=== PATIENT | female | born 1990 | race Caucasian/White ===

== ENCOUNTER 2020-04-16 06:19 | Day surgery (SDC) | payer OTHER ==
[~2020-04-16] VITALS: Ht 154.9 cm; Wt 56.3 kg
[2020-04-16 07:13] VITALS: BP 106/74
[2020-04-16] MEDS ORDERED: SODIUM CHLORIDE 0.9% 1,000 ML IV SCH (07:30)
[2020-04-16] MEDS ORDERED: CEFAZOLIN PMX 1GM/50ML 50 ML IV ONE (07:30)
[2020-04-16] MEDS ORDERED: LIDOCAINE 1%, 20ML ONE (07:45)
[2020-04-16] MEDS ORDERED: LIDOCAINE 1%, 10ML ONE (07:45)
[2020-04-16] MEDS ORDERED: FENTANYL PF 100 MCG/2ML ONE ×2 (08:09)
[2020-04-16] MEDS ORDERED: FLUMAZENIL 0.1 MG/1 ML, 5ML ONE (08:10)
[2020-04-16] MEDS ORDERED: MIDAZOLAM 1 MG/ML, 5ML ONE (08:10)
[2020-04-16] MEDS ORDERED: NALOXONE 1 MG/ML, 2ML ONE (08:10)
== END 2020-04-16 11:05 | disposition home or self-care (01) ==
LOC: OUT 06:19
PROVIDERS: ATTEND Specialist
DX: O9A.113 Malignant neoplasm complicating pregnancy, third trimester (principal); C50.412 Malignant neoplasm of upper-outer quadrant of left female breast; O99.013 Anemia complicating pregnancy, third trimester; D64.9 Anemia, unspecified; O99.333 Smoking (tobacco) complicating pregnancy, third trimester; F17.210 Nicotine dependence, cigarettes, uncomplicated; Z17.0 Estrogen receptor positive status [ER+]; Z3A.38 38 weeks gestation of pregnancy
CPT/HCPCS: 36561; 76937; 77001; 99156; 99157; C1788; C1894; J0690; J1642; J2250; J3010; J7030; J2310